=== PATIENT | male | born 1985 | race Caucasian/White ===

== ENCOUNTER 2017-03-23 21:45 | Emergency (ER) | payer SELFPAY ==
[~2017-03-23] VITALS: Ht 170.2 cm; Wt 93.2 kg
[2017-03-23] MEDS ORDERED: AMOX TR/POT CLAV 875 MG/125 MG TABLET PO ONE (23:15)
[2017-03-23] MEDS ORDERED: ACETAMINOPHEN/CODEINE 300-30 MG TABLET PO ONE (23:15)
[2017-03-23] MEDS ORDERED: PERTUSS(ACELL),DIPH,TET VAC/PF 0.5 ML VIAL IM ONE (23:15)
[2017-03-23 23:23] VITALS: BP 128/68
== END 2017-03-23 23:29 | disposition home or self-care (01) ==
LOC: EMS 21:56
DX: S91.351A Open bite, right foot, initial encounter (principal); W54.0XXA Bitten by dog, initial encounter; Y93.89 Activity, other specified; Y92.89 Other specified places as the place of occurrence of the external cause; Y99.8 Other external cause status
CPT/HCPCS: 90471; 90715; 99283

== ENCOUNTER 2018-04-02 04:48 | Emergency (ER) | payer OTHER ==
[~2018-04-02] VITALS: Ht 165.1 cm; Wt 94.5 kg
[2018-04-02] MEDS ORDERED: IBUPROFEN 800 MG TABLET PO ONE (06:30)
[2018-04-02 06:50] VITALS: BP 137/82
== END 2018-04-02 06:55 | disposition home or self-care (01) ==
LOC: EMS 04:49
DX: S63.91XA Sprain of unspecified part of right wrist and hand, initial encounter (principal); W18.39XA Other fall on same level, initial encounter; Y93.89 Activity, other specified; Y92.89 Other specified places as the place of occurrence of the external cause; Y99.8 Other external cause status
CPT/HCPCS: 99284